=== PATIENT | female | born 1935 | race Caucasian/White ===

== ENCOUNTER → 2016-09-28 | Day surgery (SDC) | payer MEDICARE, OTHER ==
[~2016-09-28] MED LIST: ALBU6.7H INH; AMLO5TAB2 PO; ATEN25TA PO; BLACK CHERRY PO; BUDE0.5S NEB; CALCTAB5 PO; CHOL5000 PO; CLON1TAB PO; COQ-100C2 PO; COQ1400C PO; CRANBERRY PO; DESL5TAB4 PO; ERYT250C12 PO; ERYT250T13 PO; GABA600T PO; LANTINJ SQ; LECI1200 PO; LECI12002 PO; LEVA0.637 INH; LEVO.125 PO; LIDOCAINE HCL 1% PF 30 ML VIAL INFIL ONE; MEPERIDINE HCL 25 MG/ML VIAL IV ONE; MULTTAB67 PO; NOVOLOGP2 SQ; OMEP20TA PO; PROB1CAP12 PO; PROPOFOL 200 MG/20 ML AMP IV ONE; PYRI60 PO; QUIN20TA4 PO; QUIN5TAB6 PO; SODIUM CHLORIDE 0.9% 10 ML VIAL ONE; TRIAMCINOLONE ACETONIDE 40 MG/ML VIAL NERV BLOCK ONE; TUMERIC PO; UMEC1AER INH; [UNRECOGNIZED DRUG - OTHER] PO; methylPREDNISolone ACETATE 80 MG/ML VIAL ONE
--- NOTE | 2016-09-29 06:52 | M6 ---
cc: NANO MCNALLY M.D. Corrected Copy: 10/02/16 DATE: 09/28/2016 DATE OF : 1935 PROCEDURE Fluoroscopically guided L5-S1 translaminar epidural steroid injection. History and physical was completed and signed. Consent was signed. Procedure site was marked. Medications were listed and reconciled. Pain score was recorded. Allergies were noted. Time out was taken. Fluoroscopy time was recorded where applicable. Sedation was administered or directed by Dr. Mcnally. The patient was given oxygen. The patient was monitored by a registered nurse. Total procedure time was greater than 15 minutes. IV was started, blood pressure cuff, pulse oximeter and EKG were applied. The patient was placed in the prone position on a Tyson table sedated with small amounts of propofol titrated to effect. Vital signs were monitored and remained stable throughout the procedure lumbar area was prepped with alcohol and 10% Betadine solution and draped with sterile drapes. Fluoroscopy was used to visualize the L5-S1 trans interlaminar space. The skin was infiltrated with 1% Xylocaine using a 27 gauge needle then a 3-1/2-inch 18-gauge Kumari needle was advanced using fluoroscopic guidance and the [id number]-[id number] technique into the epidural space at L5-S1 slightly to the right of the midline. There was negative aspiration for blood or any other type of fluid and the patient was given 10 mL of half percent Xylocaine 80 mg of Depo-Medrol. Following this the patient was taken to the recovery room with stable vital signs neurologically intact. W. MD FABIAN Duque/eileen /8:21 AM /9:27 AM
== END | disposition home or self-care (01) ==
LOC: PHSDC 06:47
PROVIDERS: ATTEND Pain Medicine Interventional Pain Medicine
DX: M79.661 Pain in right lower leg (principal); M48.06 Spinal stenosis, lumbar region
CPT/HCPCS: 62323; 99152; J1040; J2175; J3301